=== PATIENT | male | born 1955 | race Caucasian/White ===

== ENCOUNTER → 2016-12-12 | Outpatient (CLI) | payer BC ==
--- NOTE | 2016-12-12 18:26 | REP ---
MRI LUMBAR SPINE WITHOUT CONTRAST: HISTORY: Back pain. COMPARISON: 02/17/2014 Decreased signal intensity on T2-weighted images is present in the L2-3, L4-5 and L5-S1 intervertebral discs. The discs are decreased in height. These findings are consistent with disc degeneration. There is no disc bulge or herniation at the L1-2 level. The L1 nerves exit the neural foramina without compression. A diffuse disc bulge is present at the L2-3 level. There is minimal compression of the thecal sac. The L2 nerves exit the neural foramina without compression. A diffuse disc bulge is present at the L3-4 level. There is minimal compression of the thecal sac. There is hypertrophy of the posterior articulating facets. The L3 nerves exit the neural foramina without compression. A diffuse disc bulge is present at the L4-5 level. There is minimal compression of the thecal sac. There is hypertrophy of the posterior articulating facets. The L4 nerves exit the neural foramina without compression. A diffuse disc bulge and small disc extrusion central and eccentric to the right are present at the L5-S1 level. There is minimal compression of the thecal sac and right S1 nerve as it exits the thecal sac. The S1 nerve is normal. There is hypertrophy of the posterior articulating facets. The L5 nerves exit the neural foramina without compression. The conus medullaris is normal in appearance terminating at the level of the T12-L1 intervertebral disc. A Tarlov cyst is present at the S2 level. Normal signal intensity is present in the lumbar vertebral bodies. IMPRESSION: 1. Diffuse disc bulges at the L2-3 through L4-5 levels with minimal thecal sac compression. 2. Diffuse disc bulge and small disc extrusion at the L5-S1 level with minimal compression of the thecal sac and right S1 nerve as it exits the thecal sac. There is no significant change compared to the previous study. Unreviewed
== END ==
LOC: M RAD 15:31
PROVIDERS: ATTEND Nurse Practitioner Family
DX: M54.5 Low back pain (principal); M51.06 Intervertebral disc disorders with myelopathy, lumbar region; M51.17 Intervertebral disc disorders with radiculopathy, lumbosacral region

== ENCOUNTER → 2017-01-29 | Outpatient (CLI) | payer BC ==
[~2017-01-29] MED LIST: ISOVUE-370 76% 100ML VIAL (Q9967) As Ordered ONE
--- NOTE | 2017-02-03 09:28 | REP ---
Clinical: Claudication. Technique: Axial contrast enhanced images from the lung bases through the bilateral lower extremities using 100 ml Isovue 370 intravenous contrast material and CT angiographic imaging acquisition with multiplanar re-formations. Findings: Moderate atheromatous changes involve the lower thoracic and upper to mid abdominal aorta to the level of the renal arteries with calcification at the ostia, but satisfactory opacification of the celiac axis, proximal superior mesenteric artery (SMA), inferior mesenteric artery (PUSHPA), and main left renal artery. Significant atheromatous plaque involving the right renal artery is appreciated which appears to narrow the patent lumen to roughly 50% diameter. Moderate to significant atheromatous plaque with noncalcified mural thrombus is identified in the mid to distal aorta narrowing the patent lumen of the aorta to approximately 40% just above the bifurcation to common iliac arteries which demonstrate considerable atheromatous plaquing and complete occlusion of the left common iliac artery and subsequent occlusion of the left internal and external iliac arteries. The right common iliac artery demonstrates 60-75% patency to the bifurcation where complete occlusion of the right external iliac artery is identified and partial occlusion to the left internal iliac artery is noted. The bilateral external iliac arteries demonstrate complete occlusion as described above to the junction with the common femoral arteries which then demonstrate revascularization bilaterally via arteries from the anterior abdominal nicole. There is continued evidence for moderate to significant atheromatous plaquing through the bilateral lower extremities which however demonstrate opacification including to the bilateral deep femoral arteries, superficial femoral arteries to the popliteal arteries and demonstrate three-vessel runoff through the lower extremities to the level of the ankles. Liver, spleen, pancreas, gallbladder, and bilateral adrenal glands are normal. The right kidney appears mildly decreased in size and demonstrates a focal chronic area of cortical scarring along the posterior aspect extending to the lower pole which may be secondary to the above mentioned arterial compromise due to renal artery stenosis. The enteric system is without obstruction or acute inflammatory process. Scattered colonic diverticula noted without acute diverticulitis. Pelvis demonstrates normal bladder. The prostate gland is heterogeneous and upper limits of normal in size for age. No ascites. No intraperitoneal or retroperitoneal adenopathy. No free air. Musculoskeletal structures demonstrate age-related changes without focal osseous abnormality. Lung bases are clear. Impression: 1. Moderate to significant areas of arterial compromise most notably through the distal aorta and iliac arteries with abnormal revascularization of the common femoral arteries as described above. 2. Mild chronic changes to the right kidney likely secondary to chronic right renal arterial compromise. 3. Scattered colonic diverticula without acute diverticulitis. Signed by Frank Lara MD 02/03/2017 09:26 A
== END ==
LOC: M RAD 16:05
PROVIDERS: ATTEND Surgery Vascular Surgery
DX: I70.213 Atherosclerosis of native arteries of extremities with intermittent claudication, bilateral legs (principal)
CPT/HCPCS: 75635; Q9967